=== PATIENT | female | born 2000 | race Caucasian/White ===

== ENCOUNTER 2020-06-22 15:59 | Outpatient (CLI) | payer BC ==
[2020-06-22 18:52] LABS: Hep C IgG Ab Non-Reactive (NonReactive); Hep C Index 0.14 S/CO (0-0.79)
[2020-06-22 19:36] LABS: HBSAB Concentration 1560.42 mIU/mL; Hep B Surf AB Reactive (NonReactive)
== END 2020-06-22 16:00 | disposition home or self-care (01) ==
LOC: SCSLAB 15:59
PROVIDERS: ATTEND Nurse Practitioner Family
DX: Z01.84 Encounter for antibody response examination (principal)
CPT/HCPCS: 86706; 86803